=== PATIENT | female | born 1930 | race Caucasian/White ===

== ENCOUNTER 2017-05-28 18:10 | Emergency (ER) | payer OTHER, MEDICARE ==
[~2017-05-28] VITALS: Ht 165.1 cm; Wt 54.0 kg
[~2017-05-28 18:10] MED LIST: ASPIR-MOX 325325 MG PO; FISH OIL300 MG PO; FOSAMAX35 MG PO
[2017-05-28 19:29] LABS: HEMATOCRIT 39.8 % (36.0-46.0); HEMOGLOBIN 13.5 G/DL (11.9-15.5); MCH 29.9 PG (29.0-34.0); MCHC 33.9 G/DL (30.0-36.0); MCV 88.2 FL (83-99); PLATELET COUNT 335 K/uL (156-360); RBC DIS.WIDTH-CV 13.3 % (11.8-14.6); RBC DIS.WIDTH-SD 43.4 % (39-53); RED BLOOD COUNT 4.51 M/uL (3.80-5.20)
[2017-05-28 19:41] LABS: ALBUMIN 3.9 g/dL (3.2-4.8); CHLORIDE 104 mEq/L (99-109); POTASSIUM 3.9 mEq/L (3.7-5.4); SODIUM 138 mEq/L (136-147)
[2017-05-28 19:44] LABS: GLUCOSE 133 mg/dL (70-99); TOTAL PROTEIN 6.8 g/dL (6.4-8.3)
[2017-05-28 19:46] LABS: TOTAL BILIRUBIN 0.6 mg/dL (0.0-1.0)
[2017-05-28 19:47] LABS: ALKALINE PHOSPHATASE 68 IU/L (3-129); CREATININE 0.8 mg/dL (0.6-1.3); GFR ESTIMATE (CALCULATED) > 59 mL/min/
[2017-05-28 19:48] LABS: UREA NITROGEN (BUN) 23 mg/dL (9-23)
[2017-05-28 19:49] LABS: AST (GOT) 29 IU/L (2-34)
[2017-05-28 19:50] LABS: ALT (GPT) 32 IU/L (3-49)
[2017-05-28 20:22] LABS: LIPASE 6 U/L (1.0-51.0)
[2017-05-28 22:18] LABS: APPEARANCE CLEAR ((CLEAR)); BILIRUBIN NEGATIVE; BLOOD NEGATIVE; COLOR YELLOW ((YELLOW)); GLUCOSE (STRIP) NEGATIVE; KETONES 5; LEUKOCYTES NEGATIVE; NITRITE NEGATIVE; PROTEIN (STRIP) NEGATIVE; SPECIFIC GRAVITY 1.018 (1.000-1.030); UCUL ADDED? NO; UROBILINOGEN 0.2 MG/DL (0.2-1.0)
[2017-05-28] MEDS ORDERED: STOOL SOFTENER240 MG PO (22:46)
[2017-05-28 22:58] VITALS: BP 120/74
== END 2017-05-28 23:08 | disposition home or self-care (01) ==
LOC: EME 18:10
PROVIDERS: Physician Assistant
DX: K56.41 Fecal impaction (principal); R33.9 Retention of urine, unspecified; K52.9 Noninfective gastroenteritis and colitis, unspecified; K80.20 Calculus of gallbladder without cholecystitis without obstruction; J44.9 Chronic obstructive pulmonary disease, unspecified; Z85.3 Personal history of malignant neoplasm of breast; Z85.038 Personal history of other malignant neoplasm of large intestine; Z96.643 Presence of artificial hip joint, bilateral; Z96.651 Presence of right artificial knee joint; Z87.891 Personal history of nicotine dependence
CPT/HCPCS: 71046; 74176; 80053; 81003; 83690; 85027; 99281; 99285